=== PATIENT | male | born 1985 | race Caucasian/White ===

== ENCOUNTER 2018-11-01 08:19 | Emergency (ER) | payer OTHER ==
[2018-11-01] MEDS: DEXAMETHASONE 10 MG/ML 1 ML INJ IM (09:09)
[2018-11-01] MEDS: KETOROLAC 60 MG INJ IM (09:10)
[2018-11-01] MEDS: DIAZEPAM 5 MG TAB PO ×2 (09:11→09:16)
== END 2018-11-01 10:17 | disposition home or self-care (01) ==
LOC: FTE 10:17
DX: M54.5 Low back pain (principal)
CPT/HCPCS: 72100; 96372; 99284-25